=== PATIENT | male | born 1960 | race Caucasian/White ===

== ENCOUNTER 2017-11-07 11:06 | Day surgery (SDC) | payer BC ==
[~2017-11-07 11:06] MED LIST: ALPR.25 PO; ASPI325 PO; ATOR10 PO; Depo-Testos200 MG/ML IM; ERGO400 PO; HYDACE5 PO; LEVSOD50 PO; MINO100 PO; PROM25 PO; Percocet 5-3251 EACH PO; ROSU10TA PO
[2018-05-10] MEDS ORDERED: Depo-Testos200 MG/ML IM (17:37)
== END 2017-11-07 22:38 | disposition home or self-care (01) ==
LOC: RAD 11:06
PROC: BQ01YZZ Plain Radiography of Left Hip using Other Contrast (ICD-10-PCS; principal; 2017-11-07)
DX: M16.12 Unilateral primary osteoarthritis, left hip (principal); Z96.642 Presence of left artificial hip joint
CPT/HCPCS: 73502

== ENCOUNTER 2018-05-13 07:06 | Day surgery (SDC) | payer BC | END 2018-05-13 23:38 | disposition home or self-care (01) | LOC: ORSCMMR 07:06 → ORD 08:30 → ORSCMMR 23:38 | PROVIDERS: Surgery | PROC: 0WUF0JZ Supplement Abdominal Wall with Synthetic Substitute, Open Approach (ICD-10-PCS; principal; 2018-05-13 08:30) | DX: K42.0 Umbilical hernia with obstruction, without gangrene (principal); E03.9 Hypothyroidism, unspecified; Z79.899 Other long term (current) drug therapy | CPT/HCPCS: C1781; J0690; J1100; J1885; J2250; J2405; J2710; J3010; J7120 ==

== ENCOUNTER 2025-10-06 11:44 | Observation (INO) | payer BC ==
[~2025-10-06] VITALS: Ht 188 cm; Wt 96.6 kg
[~2025-10-06 11:44] MED LIST changes: +Aspir 8181 MG PO; +Cialis20 MG PO; +LOSA25 PO
[2025-10-06] MEDS ORDERED: FentaNYL Citrate 50 MCG/ML 2 ML Injection IV ONE (12:40)
[2025-10-06 12:50] LABS: BASOPHILS ABSOLUTE AUTO 0.05 K/mm3 (0.00-0.23); BASOPHILS PERCENT AUTO 1 % (0-2); EOSINOPHILS ABSOLUTE AUTO 0.18 K/mm3 (0.00-0.68); EOSINOPHILS PERCENT AUTO 2 % (0-6); Hematocrit 45.3 % (37.0-53.0); Hemoglobin 14.8 g/dL (13.5-17.5); IMMATURE GRAN ABSOLUTE AUTO 0.10 K/mm3 (0.00-0.10); IMMATURE GRAN PERCENT AUTO 1 % (0-1); LYMPHOCYTES ABSOLUTE AUTO 1.36 K/mm3 (0.84-5.20); LYMPHOCYTES PERCENT AUTO 16 % (21-46); MONOCYTES ABSOLUTE AUTO 0.72 K/mm3 (0.16-1.47); MONOCYTES PERCENT AUTO 8 % (4-13); Mean Corpuscular HGB Conc 32.7 g/dL (31.5-36.5); Mean Corpuscular Volume 84 fL (80-100); NEUTROPHILS ABSOLUTE AUTO 6.21 K/mm3 (1.96-9.15); NEUTROPHILS PERCENT AUTO 72 % (41-73); NRBC ABSOLUTE 0.00 K/mm3 (0.00-0.02); NRBC Auto 0.0 /100 WBC (0.0-0.2); Platelet Count 274 K/mm3 (150-400); RDW Coefficient Variation 14.9 % (11.7-14.2); RDW Standard Deviation 45.6 fL (35.1-46.3)
[2025-10-06 13:06] LABS: Prothrombin Time Results 11.0 Sec (9.7-11.5)
[2025-10-06 13:18] LABS: Alanine Aminotransfer (ALT/SGP 28.0 U/L (12-78); Albumin, Blood 3.5 g/dL (3.4-5.0); Albumin/Globulin Ratio 0.8 (0.8-1.8); Anion Gap 8.0 mmol/L (3-11); Aspartate Aminotrans (AST/SGOT 18.0 U/L (12-37); Bilirubin, Total 0.5 mg/dL (0.1-1.0); Blood Urea Nitrogen 18.0 mg/dL (8-24); C-REACTIVE PROTEIN, EXT RANGE 3.94 mg/dL (0.000-0.300); CO2, Blood 25.0 mmol/L (21-32); Calcium, Blood 9.2 mg/dL (8.5-10.1); Chloride, Blood 106.0 mmol/L (98-108); Creatinine, Blood 0.76 mg/dL (0.60-1.20); Globulin, Blood 4.3 g/dL (2.2-4.0); Glucose, Blood 112.0 mg/dL (70-99); Potassium, Blood 4.1 mmol/L (3.5-5.5); Sodium, Blood 135.0 mmol/L (136-145); Total Protein, Blood 7.8 g/dL (6.4-8.2)
[2025-10-06] MEDS ORDERED: Ondansetron HCl 2 MG / ML 2ML Vial IV PRN (18:45)
[2025-10-06] MEDS ORDERED: OxyCODONE 5 mg/Acetamin 325 mg TABLET PO PRN (18:50)
[2025-10-06] MEDS ORDERED: FLU VACC TS2025(65UP)/MF59C/PF 45 MCG/0.5 ML SYRINGE IM SCH (19:05)
[2025-10-06 21:05] VITALS: BP 156/85
--- NOTE | 2025-10-06 22:00 | NUR ---
ARRIVAL TO SURGICAL UNIT ROOM 208. PT ARRIVED VIA WHEEL CHAIR AT 2100. PT STOOD AND TRANSFERED TO HOSPITAL BED WITH INCREASED PAIN WITH MOVEMENT. PT ORIENTED TO ROOM, CALL LIGHT, UNIT POLICIES. PT DENIES NEED FOR LOCK BOX AND DENIES IGNITION SOURCES. PT A/O X4, AND FOLLOWS COMMANDS.
[2025-10-07 03:20] VITALS: BP 131/80
--- NOTE | 2025-10-07 04:57 | NUR ---
SHIFT SUMMARY NOC. PT ADMIT FROM ER THIS SHIFT. PT NPO SINCE 0000 FOR POTENTIAL DRAIN PLACEMENT FOR RLE. PT A/O X4, MAKES NEEDS KNOWN. PT VOIDING URINE. PT MEDICATED FOR PAIN ONE TIME WITH ORAL PERCOCET, PT REPORTED RELIEF OF SX. CALL LIGHT IN REACH.
[2025-10-07 06:06] LABS: Hematocrit 41.7 % (37.0-53.0); Hemoglobin 13.7 g/dL (13.5-17.5); Mean Corpuscular HGB Conc 32.9 g/dL (31.5-36.5); Mean Corpuscular Volume 84 fL (80-100); NRBC ABSOLUTE 0.00 K/mm3 (0.00-0.02); NRBC Auto 0.0 /100 WBC (0.0-0.2); Platelet Count 237 K/mm3 (150-400); RDW Coefficient Variation 15.0 % (11.7-14.2); RDW Standard Deviation 45.7 fL (35.1-46.3)
[2025-10-07 06:22] LABS: Prothrombin Time Results 11.2 Sec (9.7-11.5)
[2025-10-07 07:29] VITALS: BP 155/87
--- NOTE | 2025-10-07 13:00 | NUR ---
BEDSIDE PROCEDURE DR. SHEPPARD AT THE BEDSIDE FOR DRAINAGE AND DRAIN PLACEMENT OF HEMATOMA VS SEROMA. LG AMOUNT OF BROWNISH RED FLUID DRAINED FROM LEG DURING PROCEDURE. DR. SHEPPARD PLACED HEMOVAC DRAIN.
[2025-10-07 16:54] VITALS: BP 149/82
--- NOTE | 2025-10-07 18:31 | NUR ---
SHIFT SUMMARY PT HAD HEMOVAC DRAIN PLACED AT THE BEDSIDE BY DR. SHEPPARD TODAY. PT REPORTED IMPROVED PAIN AFTER HEMATOMA WAS DRAINED. NO CHANGE IN APPEARANCE OF DRAINAGE FROM REDISH/BROWN, DARK RED BLOOD TO BRIGHT RED BLOOD. PT HAS BEEN EDUCATED TO NOTIFIY STAFF IF DRAINAGE INCREASES OR CHANGES COLOR. PT HAS BEEN ALERT, ORIENTED, PLEASANT T/O THE DAY. HE IS INDEPENDENT IN THE ROOM. CALLS APPROPRIATELY.
--- NOTE | 2025-10-07 20:00 | NUR ---
ASSUMED CARE OF PT. REPORT RECEIVED AT BEDSIDE. PT PRESENTS IN BED. ALERTA ND ORIENTED. PLEASANT AND COOPERATIVE WITH CARE AND ASSESSMENT. HAS HEMAVAC IN PLACE. COMPRESSED APPROPRIATE. SEROUSANGEOUS DRAINAGE. WILL REVIEW CHART AND PLAN OF CARE FOR THIS PT.
[2025-10-07 20:22] VITALS: BP 139/79
--- NOTE | 2025-10-07 22:08 | NUR ---
THIS NURSE IS ASSUMING CARE OF PATIENT. REPORT RECEIVED FROM LEYLA SILVESTRE. PATIENT IS LAYING IN BED APPEARING ASLEEP WITH EVEN/EQUAL RESPIRATIONS AND CALL LIGHT WITHIN REACH. PATIENT CURRENTLY HAS NO APPARENT S/S OF DISTRESS OR PAIN AT THIS TIME.
--- NOTE | 2025-10-08 03:34 | NUR ---
SHIFT SUMMARY: PATIENT IS A&OX4. VITALS ARE STABLE AND IS ON ROOM AIR WITH >90% SPO2. PATIENT REPORTS 6/10 PAIN ON HIS RIGHT THIGH, WHICH HAS BEEN MANAGED WITH PO PERCOCET PER EMAR. PATIENT REPORTS VOIDING IN THE BATHROOM THROUGHOUTSHIFT INDEPENDENTLY. PATIENTS RIGHT THIGH HEMOVAC DRAIN HAS DARK SEROSANGUINEOUS OUTPUT WITH THE HEMOVAC COMPRESSED WITH NO KINKS IN TUBING AND INCISION SITE IS C/D/I. PATIENT IS ABLE TO MAKE HIS NEEDS KNOWN AND CALLS APPROPRIATELY. PATIENT IS CURRENTLY LAYING IN BED WITH CALL LIGHT IN REACH.
[2025-10-08 04:24] VITALS: BP 153/106
[2025-10-08 04:46] LABS: Hematocrit 41.4 % (37.0-53.0); Hemoglobin 13.4 g/dL (13.5-17.5)
[2025-10-08 05:16] VITALS: BP 145/94
[2025-10-08] MEDS ORDERED: Tranexamic Acid 100 ML IV SCH (08:00)
--- NOTE | 2025-10-08 08:27 | NUR ---
dr stephenson in to see pt.
[2025-10-08 08:34] VITALS: BP 144/95
[2025-10-08 15:45] VITALS: BP 139/84
--- NOTE | 2025-10-08 16:29 | NUR ---
DISCHARGE NOTE PT EDUCATED ON DRAIN MANAGEMENT AND TO FOLLOW UP WITH ORTHO WITHIN 1 WEEK NUMBER PROVIDED. PT VERBALIZED UNDERSTANDING OF DRAIN MANAGEMENT AND EXHIBITS ANAHY. IV WAS REMOVED. ESCORTED DOWN TO PERSONAL VEHICLE VIA WHEELCHAIR. PER DOC PT OK TO DRIVE HIMSELF HOME. NO NEW QUESTIONS OR CONCERNS PRIOR TO DC.
== END 2025-10-08 16:40 | disposition home or self-care (01) ==
LOC: ER 11:44 → SURS 11:45
PROVIDERS: Emergency Medicine; Nurse Practitioner Acute Care; Student in an Organized Health Care Education/Training Program; ADMIT Student in an Organized Health Care Education/Training Program
DX: M25.051 Hemarthrosis, right hip (principal); I10 Essential (primary) hypertension; E78.5 Hyperlipidemia, unspecified; E03.9 Hypothyroidism, unspecified; M19.90 Unspecified osteoarthritis, unspecified site; Z79.890 Hormone replacement therapy; Z79.899 Other long term (current) drug therapy; Z87.891 Personal history of nicotine dependence; Z96.641 Presence of right artificial hip joint
CPT/HCPCS: 36415; 72191; 80053; 83605; 85014; 85018; 85025; 85027; 85610; 85651; 85730; 86140; 86850; 86900; 86901; 96374-59; 97161; 99285-25; A9270; G0378; J3010; Q9967